=== PATIENT | female | born 1990 | race Caucasian/White ===

== ENCOUNTER → 2025-03-04 12:10 | Outpatient (CLI) | payer OTHER, SELFPAY ==
[2025-03-08 19:39] LABS: Gest Age on Col Date 18.4 weeks (.); OSBR Risk 1IN 1337 (.)
== END ==
PROVIDERS: PCP Nurse Practitioner Family; Referring Provider Obstetrics & Gynecology; Visit Provider Obstetrics & Gynecology
DX: Z34.02 Encounter for supervision of normal first pregnancy, second trimester (principal)
CPT/HCPCS: 36415; 82105